=== PATIENT | female | born 1995 | race Caucasian/White ===

== ENCOUNTER 2021-12-26 07:54 | Day surgery (SDC) | payer MEDICAID ==
[~2021-12-26] VITALS: Ht 165.1 cm; Wt 116.1 kg
[2021-12-26] MEDS ORDERED: diphenhydrAMINE 50 MG/ML VIAL ONE (08:54)
[2021-12-26] MEDS ORDERED: fentaNYL citrate 0.05 MG/ML VIAL ONE (08:54)
[2021-12-26] MEDS ORDERED: MIDAZOLAM 5 MG/5 ML VIAL ONE (08:55)
[2021-12-26] MEDS ORDERED: fentaNYL citrate 0.05 MG/ML VIAL IVP ONE (13:00)
[2021-12-26] MEDS ORDERED: MIDAZOLAM 2 MG/2 ML VIAL IVP ONE (13:00)
== END 2021-12-26 10:05 | disposition home or self-care (01) ==
LOC: MDS 07:54 → MMU 07:56 → MDS 10:05
PROVIDERS: ATTEND Internal Medicine Gastroenterology
DX: K62.5 Hemorrhage of anus and rectum (principal); K63.5 Polyp of colon; R74.01 Elevation of levels of liver transaminase levels; K59.00 Constipation, unspecified; K64.8 Other hemorrhoids; E11.9 Type 2 diabetes mellitus without complications; Z79.899 Other long term (current) drug therapy
CPT/HCPCS: 45385; 81025; J2250; J3010; J1200